=== PATIENT | male | born 1975 | race Caucasian/White ===

== ENCOUNTER 2017-09-05 07:41 | Day surgery (SDC) | payer MEDICAID, SELFPAY ==
[2017-09-05 08:02] VITALS: BP 149/88; PULSE 113; RESP 18; TEMP 37.1; O2SAT 98; BMI 44.2
[2017-09-05 08:28] VITALS: O2SAT 100
--- NOTE | 2017-09-05 08:37 | PC.NURSE ---
Ceferino Biggs in room at 0835 to take over sedating for MAC anesthesia. IV sedation attempted, pt is still talking and having conversation.
--- NOTE | 2017-09-05 09:00 | HMH.SCOPE ---
- Procedure: Date: 09/05/17 Procedure Performed:: Colonoscopy Indications:: This is a 41-year-old gentleman seen in consultation from Dr. Hansen for evaluation regarding bright red blood per rectum. The patient is concerned about bleeding hemorrhoids . Performing Provider:: Robin Horton MD Referring Provider:: Dr. Hansen Sedation:: IV sedation with 7 mg of Versed and 150 mcg of fentanyl followed by monitored anesthesia care Procedure:: After informed consent was obtained, the patient was taken to the endoscopy suite. IV sedation ensued but an appropriate level sedation cannot be safely achieved and the anesthesia service was consulted. Monitored anesthesia care then ensued. Digital rectal exam revealed some lateral hemorrhoidal cushions. Hemorrhoidal cushions were fairly mild and no sign of thrombosis or recent bleeding was noted. The colonoscope was then position. The entire colon was evaluated. Bowel preparation was moderate with irrigation and suctioning used to improve visualization. Moderate spasticity was encountered. A few scattered sigmoid diverticuli were seen. No polypoid or mass lesions were seen. Evaluation in the anorectal region revealed some fairly mild hemorrhoidal cushions. No large hemorrhoids, thrombosed hemorrhoids, or active bleeding was seen. The colonoscope was carefully removed and the patient was transferred to recovery. Findings:: Bowel preparation moderate Moderate spasticity Fairly mild hemorrhoidal cushions with no thrombosis or bleeding Scattered sigmoid diverticulosis Specimens:: None Recommendations:: Fiber, increase fluid intake, stool softeners, Preparation H, and Proctosol. Follow-up for reevaluation in 1-2 weeks. Complications:: No immediate Estimated blood obtained (mL): 0
[2017-09-05 09:05] VITALS: BP 102/65; PULSE 87; RESP 18; O2SAT 97
--- NOTE | 2017-09-05 09:07 | P.PN_ITS ---
[facility] Anesthesia Checklist - Patient Identification Patient Identification: Arm Band, Verbal (Name & ) - Structural Data Admitted From: Home Planned Operative Procedure/s: colonoscopy Consent for Planned Operative Procedure(s) Verified: Yes Verified Documents: Surgical Consent - NPO Status Verified Time NPO: 00:00 - Chart Verification Results Verified: None - Additional verifications Patient : No Anesthesia Reactions: No Hx Blood Transfusions: No Blood Transfusion Reaction: No Cephalosporin Allergy: No Previous Colonoscopy: No - Cardiovascular Assessment Heart Sounds: S1 & S2 Pulse Strength: Baseline Pulse Rhythm: Regular Peripheral Edema: No - Airway Assessment C-Spine Mobility Assessed: Yes TMJ Mobility Assessed: Yes Dentition: Poor Dentition - Neurological Assessment Level of Consciousness: Appropriate Hx Seizures: No Numbness or tingling in extremities: No - Anesthesia Plan Anesthesia Risk discussed: Yes ASA Class: II Anesthesia Type: MAC [facility] Anesthesia HX I have reviewed the patient's past medical history: Yes Medical History: Denies:: Diabetes Mellitus Type 1, Diabetes Mellitus Type 2, Internal Pacemaker, Lung Disease, Seizures Other Surgeries: Yes: No Previous Surgery. No: Pacemaker *Family Hx:: No significant family history
[2017-09-05 09:15] VITALS: BP 103/86; PULSE 75; RESP 18; O2SAT 98
[2017-09-05 09:25] VITALS: BP 108/66; PULSE 72; RESP 16; O2SAT 97
== END 2017-09-05 09:25 | disposition home or self-care (01) ==
LOC: OUTP 07:43
PROVIDERS: Family Provider Emergency Medicine; PCP Internal Medicine Adolescent Medicine; Visit Provider Surgery
PROC: 0DJD8ZZ Inspection of Lower Intestinal Tract, Via Natural or Artificial Opening Endoscopic (ICD-10-PCS; CPT 45378; principal; 2017-09-05 08:15)
DX: K62.5 Hemorrhage of anus and rectum (principal); K58.9 Irritable bowel syndrome, unspecified; K64.9 Unspecified hemorrhoids; K57.30 Diverticulosis of large intestine without perforation or abscess without bleeding
CPT/HCPCS: 45378; 99152; 99153

== ENCOUNTER 2020-06-05 17:13 | Emergency (ER) | payer MEDICAID, SELFPAY ==
[2020-06-05 17:30] VITALS: BP 134/107; PULSE 102; RESP 16; TEMP 36.9; O2SAT 99; BMI 20.9
--- NOTE | 2020-06-05 18:14 | HMH.EDUTC ---
[facility] [place] Impression: Exposure to COVID-19 virus Disposition: Home, Self-Care Condition on Discharge: Good Instructions: Preventing the Spread of Coronavirus Discharge Instructions Additional Instructions: isolate until test results are known neg Referrals: PCP,No [Primary Care Provider] - Time of Disposition: 18:22 Medical Decision Making - Asher Inquiry Pt receiving controlled substance: No Vital Signs: 06/05/20 17:30 06/05/20 18:18 Temperature 98.5 F 98.5 F Temperature Source Oral Pulse Rate 102 H Pulse Rate [Right Brachial] 102 H Respiratory Rate 16 16 Blood Pressure 134/107 H Blood Pressure [Right Arm] 134/107 H Blood Pressure Mean [Right Arm] 116 Blood Pressure Source [Right Arm] Automatic Cuff Blood Pressure Position [Right Arm] Sitting 02 Sat by Pulse Oximetry 99 Oxygen Delivery Method Room Air Orders (Tests/Meds): ORDERS Category Date Time Status Covid-19 Nasal PCR Sendout Jamin Routine Lab 06/05/20 17:38 [place] [facility] [place] - General Chief complaint: [facility] Stated complaint: covid exposure Time Seen by Provider: 06/05/20 18:20 Mode of Arrival: Ambulatory Source of Information: Patient Limitations: No Limitations Description of Symptoms (Recalled from Triage Doc. by RN): PATIENT REQUESTING COVID TEST D/T INDIRECT EXPOSURE; DENIES SYMPTOMS HEENT Symptoms (Recalled from RN notes): No Resp Symptoms (Recalled from RN notes): No Skin Symptoms (Recalled from RN notes): No MS Symptoms (Recalled from RN notes): No Functional Status (Recalled from RN notes): WNL - History of Present Illness Provider Complaint: 44 yr old male presnets for covid test. Has been exposed but denies symptoms. - Related Data Previous Rx's Medication Instructions Recorded peg 3350-electrolytes 227.1 240 ml PO Q10M #1 each 09/03/17 gram-21.5 gram-6.36gram oral powder packet Allergies Allergy/AdvReac Type Severity Reaction Status Date / Time No Known Allergies Allergy Verified 09/04/17 10:10 - Worker's Comp Is this a Worker's Comp case?: No [facility] History - Hepatitis A Screen Drug use history?: No High risk sexual behaviors?: No History of sexually transmitted infection?: No Currently employed?: No Childcare worker?: No Do you have indoor plumbing?: Yes Do you have electricity?: Yes Attestation statement:: This patient has been screened for Hepatitis A risk factors. I have reviewed the patient's past medical history: Yes Medical History: Denies:: Diabetes Mellitus Type 1, Diabetes Mellitus Type 2, Internal Pacemaker, Lung Disease, Seizures Other Medical History: Denies: Blood Transfusion Reaction Other Surgeries: Yes: No Previous Surgery. No: Pacemaker - Social History Smoking Status: Current every day smoker Tobacco Type: cigarettes Alcohol Intake: never Alcohol Intake Frequency:: 3 or more drinks per day Substance Use Type: denies use Occupational Status: other Family Hx:: No significant family history ROS Obtained: Yes Systems reviewed as appropriate & no additional complaints - Constitutional Constitutional: Reports system reviewed and no additional complaints, except as docu, Denies fever(s) - Eyes Eyes: Reports system reviewed and no additional complaints, except as docu - ENT Ears, Nose, Mouth, and Throat: Reports system reviewed and no additional complaints, except as docu, Denies bleeding gums - Cardiovascular Cardiovascular: Reports system reviewed and no additional complaints, except as docu, Denies chest pain - Respiratory Respiratory: Yes system reviewed and no additional complaints, except as docu - Gastrointestinal Gastrointestingal: Reports: system reviewed and no additional complaints, except as docu. Denies: nausea - Genitourinary Male Genitourinary: Reports system reviewed and no additional complaints, except as docu - Musculoskeletal Musculoskeletal: Reports system reviewed and no additional compl
[2020-06-05 18:18] VITALS: BP 134/107; PULSE 102; RESP 16; TEMP 36.9; O2SAT 99
[2020-06-07 12:55] LABS: Covid-19 Nasal PCR Sendout Lex Not Detected
== END 2020-06-05 18:25 | disposition home or self-care (01) ==
PROVIDERS: Emergency Provider Nurse Practitioner Family
DX: Z20.828 Contact with and (suspected) exposure to other viral communicable diseases (principal); F17.210 Nicotine dependence, cigarettes, uncomplicated
CPT/HCPCS: 99201; U0004

== ENCOUNTER 2020-06-20 12:17 | Emergency (ER) | payer MEDICAID, SELFPAY ==
[2020-06-20 12:19] VITALS: BP 123/78; PULSE 100; RESP 20; TEMP 36.4; O2SAT 100; BMI 20.2
[2020-06-20 12:20] VITALS: BP 123/78; PULSE 100; RESP 20; TEMP 36.4; O2SAT 100; BMI 20.2
--- NOTE | 2020-06-20 12:26 | XR_ITS ---
PROCEDURE: XR FOOT RT MIN 3V CLINICAL INDICATION: fall Pain COMPARISON: No exams were available for comparison FINDINGS: There is a nondisplaced distal fibular fracture. No foot fracture is identified. The joint spaces are well-preserved. No significant degenerative/arthritic changes. No erosive changes evident. Other findings:None. IMPRESSION: Nondisplaced distal fibular fracture Dictated by: Segun Perez MD 06/20/2020 12:59 Segun Perez MD in [place] 06/20/2020 12:59
--- NOTE | 2020-06-20 12:26 | XR_ITS ---
PROCEDURE: XR ANKLE RT MIN 3V CLINICAL INDICATION: fall Posttraumatic pain COMPARISON: No exams were available for comparison FINDINGS: There is a nondisplaced oblique fracture of the distal shaft of the fibula at the diaphyseal metaphyseal junction. The ankle mortise appears preserved. Soft tissue swelling is present laterally. IMPRESSION: Nondisplaced distal fibular fracture Dictated by: Segun Perez MD 06/20/2020 12:59 Segun Perez MD in [place] 06/20/2020 12:59
--- NOTE | 2020-06-20 12:38 | HMH.EDUTC ---
[facility] [place] Clinical Impression: Oblique fracture of shaft of fibula Qualifiers: Encounter type: initial encounter Fracture type: closed Fracture alignment: nondisplaced Laterality: right Qualified Code(s): S82.434A - Nondisplaced oblique fracture of shaft of right fibula, initial encounter for closed fracture Disposition: Home, Self-Care Condition on Discharge: Good Instructions: How to Use Crutches, How To Perform RICE (Rest, Ice, Compress, Elevate), How to Apply an Elizabeth Wrap, Ibuprofen Additional Instructions: *Non-weight bearing *RICE, Rest the extremity, Ice 15-20 minutes 3-4 times daily, Compress- wear the elizabeth wrap as discussed as much as possible to help reduce swelling and pain, Elevate the extremity when at rest *Elizabeth wrap/Walking boot is for support and help control swelling, use it except in the shower. Be sure that is not to tight but not to loose either *Elevate when resting *Ibuprofen as prescribed every 8 hours as needed for pain an inflammation. If need something more can take Tylenol in between doses of Ibuprofen to help Immediately follow up with your family doctor for new or worsening of symptoms, or no noticeable improvement over the next 3-5 days Prescriptions: Ibuprofen [Ibuprofen 800mg Tablet] 800 mg PO Q8HP PRN #20 tab PRN Reason: Moderate Pain Transmission Status: Received by [facility] Referrals: PCP,Sandy [Primary Care Provider] - Ann-Marie Malloy MD [Physician] - 06/27/20 10:00 am Time of Disposition: 13:02 Medical Decision Making - Asher Inquiry Pt receiving controlled substance: Sandy Sterling was queried for this patient: No Vital Signs: 06/20/20 12:19 06/20/20 12:20 06/20/20 13:08 Temperature 97.5 F L 97.5 F L 97.5 F L Temperature Source Oral Oral Pulse Rate 100 H Pulse Rate [Left Radial] 100 H 100 H Respiratory Rate 20 20 20 Blood Pressure 123/78 Blood Pressure [Right Arm] 123/78 123/78 Blood Pressure Mean [Right Arm] 93 93 Blood Pressure Source [Right Arm] Automatic Cuff Automatic Cuff Blood Pressure Position [Right Arm] Sitting Sitting 02 Sat by Pulse Oximetry 100 100 Oxygen Delivery Method Room Air Room Air - Radiology Data #1 Image(s): Foot/Toes Image Reviewed: Yes I reviewed the patient's radiology image Oblique fracture noted in fibula #2 Image(s): Ankle Image Reviewed: Yes I reviewed the patient's radiology image Oblique Fracture in distal fibula - Physician Consults Physician Consulted: Gama Time: 12:50 Reason -: Orthopedic Eval/Care Comment/Response: Spoke with Dr Malloy and she viewed xray and agreed with fracture of fibula, advised to place in elizabeth wrap, walking boot and crutches with RICe and appointment in her office next week, SaturdayJun 27 at 10am [facility] [place] - General Stated complaint: [id number] right foot injury @ home Time Seen by Provider: 06/20/20 12:38 Mode of Arrival: Ambulatory Source of Information: Patient Limitations: No Limitations Description of Symptoms (Recalled from Triage Doc. by RN): states he fell on a piece of firewood last night and he thinks he broke his right ankle/foot HEENT Symptoms (Recalled from RN notes): No Resp Symptoms (Recalled from RN notes): No Skin Symptoms (Recalled from RN notes): No MS Symptoms (Recalled from RN notes): Yes Functional Status (Recalled from RN notes): WNL - History of Present Illness Provider Complaint: Patient states that last night he stepped on a piece of wood and it rolled with him and twisted his foot/ankle State that ever since he has been having swelling and pain in his right ankle area and hurts when he tried to walk on it States that today he was having some swelling and bruising so he come in to get it checked Denies any other injury - Related Data Previous Rx's Medication Instructions Recorded Ibuprofen [Ibuprofen 800mg 800 mg PO Q8HP PRN #20 tab 06/20/20 Tablet] Allergies Allergy/AdvReac Type Severity Reaction Status Da
[2020-06-20 13:08] VITALS: BP 123/78; PULSE 100; RESP 20; TEMP 36.4; O2SAT 100
== END 2020-06-20 13:10 | disposition home or self-care (01) ==
PROVIDERS: Emergency Provider Nurse Practitioner
DX: S82.434A Nondisplaced oblique fracture of shaft of right fibula, initial encounter for closed fracture (principal); W01.198A Fall on same level from slipping, tripping and stumbling with subsequent striking against other object, initial encounter; Y92.019 Unspecified place in single-family (private) house as the place of occurrence of the external cause; F17.210 Nicotine dependence, cigarettes, uncomplicated
CPT/HCPCS: 29515; 73610; 73630; 99201

== ENCOUNTER → 2020-06-27 10:10 | Outpatient (CLI) | payer MEDICAID, SELFPAY ==
--- NOTE | 2020-06-27 10:16 | XR_ITS ---
PROCEDURE: XR ANKLE WT BEARING RT MIN 3V CLINICAL INDICATION: RT ankle COMPARISON: CR XR ANKLE RT MIN 3V from 06/20/2020 FINDINGS: The spiral oblique fracture distal fibula is again noted. There is less soft tissue swelling laterally is seen on previous study 06/20/2000. The ankle mortise appears normal. There is no definite visible callus formation. IMPRESSION: Stable essentially nondisplaced spiral oblique fracture distal fibula Dictated by: Dr. Darren Michelle MD 06/27/2020 12:46 Dr. Darren Michelle MD in [place] 06/27/2020 12:46
== END ==
PROVIDERS: Visit Provider Orthopaedic Surgery
DX: M25.571 Pain in right ankle and joints of right foot (principal)
CPT/HCPCS: 73610

== ENCOUNTER → 2020-07-11 13:12 | Outpatient (CLI) | payer MEDICAID, SELFPAY ==
--- NOTE | 2020-07-11 13:17 | XR_ITS ---
PROCEDURE: XR ANKLE RT MIN 3V CLINICAL INDICATION: non-displaced fracture of R distal fibula Follow-up fracture COMPARISON: CR XR ANKLE RT MIN 3V from 06/20/2020 CR XR ANKLE WT BEARING RT MIN 3V from 06/27/2020 FINDINGS: Cast has been placed stabilizing the nondisplaced distal fibular fracture which is in good alignment. IMPRESSION: Good alignment distal fibular fracture status post cast placement Dictated by: Segun Perez MD 07/11/2020 13:44 Segun Perez MD in [place] 07/11/2020 13:44
== END ==
PROVIDERS: PCP Nurse Practitioner Family; Visit Provider Orthopaedic Surgery
DX: S82.431A Displaced oblique fracture of shaft of right fibula, initial encounter for closed fracture (principal)
CPT/HCPCS: 73610

== ENCOUNTER 2020-07-11 14:31 | Outpatient (RCR) | payer MEDICAID, SELFPAY | END 2020-07-11 15:31 | disposition home or self-care (01) | LOC: PT 14:31 | PROVIDERS: Visit Provider Orthopaedic Surgery | DX: S82.4 Fracture of shaft of fibula (principal) | CPT/HCPCS: 97760 ==

== ENCOUNTER → 2020-08-29 12:09 | Outpatient (CLI) | payer MEDICAID, SELFPAY ==
--- NOTE | 2020-08-29 12:13 | XR_ITS ---
PROCEDURE: XR ANKLE WT BEARING RT MIN 3V CLINICAL INDICATION: RT distal fibula FX Follow-up fracture COMPARISON: CR XR ANKLE RT MIN 3V from 06/20/2020 CR XR ANKLE WT BEARING RT MIN 3V from 06/27/2020 DX XR ANKLE RT MIN 3V from 07/11/2020 FINDINGS: The cast has been removed. Healing distal fibular fracture is noted with callus formation laterally and posteriorly. Fracture line is still visible on the lateral view. There is good alignment IMPRESSION: Healing nondisplaced distal fibular fracture with good alignment Dictated by: Segun Perez MD 08/29/2020 13:00 Segun Perez MD in [place] 08/29/2020 13:00
== END ==
PROVIDERS: PCP Nurse Practitioner Family; Visit Provider Orthopaedic Surgery
DX: S82.434A Nondisplaced oblique fracture of shaft of right fibula, initial encounter for closed fracture (principal)
CPT/HCPCS: 73610

== ENCOUNTER 2020-08-29 14:52 | Outpatient (RCR) | payer MEDICAID, SELFPAY | END 2020-08-29 15:29 | disposition home or self-care (01) | LOC: PT 14:52 | PROVIDERS: Visit Provider Orthopaedic Surgery | DX: S82.434A Nondisplaced oblique fracture of shaft of right fibula, initial encounter for closed fracture (principal) ==

== ENCOUNTER → 2020-12-23 08:06 | Outpatient (CLI) | payer MEDICAID, SELFPAY ==
--- NOTE | 2020-12-23 08:10 | US_ITS ---
PROCEDURE: US ABDOMEN COMPLETE CLINICAL INDICATION: UNSPECIFIED ABD PAIN Hello COMPARISON: No exams were available for comparison FINDINGS: PANCREAS: Unremarkable. No obvious mass or abnormal fluid collection. No ductal dilatation LIVER: Diffuse increased echogenicity of the liver with poor through transmission of sound consistent with hepatic steatosis. No focal liver lesion demonstrated. There is appropriate direction of blood flow within non dilated portal vein. RIGHT KIDNEY: Unremarkable. Normal size and echogenicity. No hydronephrosis LEFT KIDNEY: Unremarkable. Normal size and echogenicity. No hydronephrosis GALLBLADDER: No gallstones, gallbladder wall thickening, pericholecystic fluid, or biliary dilatation. AORTA: No evidence of aneurysmal dilatation. SPLEEN: Unremarkable. Normal size and echogenicity ASCITES: None demonstrated. Ultrasound performed of the left lower quadrant in the patient's area of reported bulge. No obvious hernias were identified at this region. If there is high degree suspicion of hernia then CT may provide further evaluation. IMPRESSION: No acute findings Dictated by: Segun Perez MD 12/23/2020 15:02 Segun Perez MD in [place] 12/23/2020 15:02
== END ==
PROVIDERS: PCP Nurse Practitioner Family; Visit Provider Nurse Practitioner
DX: R10.9 Unspecified abdominal pain (principal)
CPT/HCPCS: 76700

== ENCOUNTER 2023-01-15 07:00 | Outpatient (RCR) | payer OTHER, SELFPAY | END 2023-03-05 16:06 | disposition home or self-care (01) | LOC: PT 07:00 | PROVIDERS: Visit Provider Nurse Practitioner Family | DX: M54.50 Low back pain, unspecified (principal) | CPT/HCPCS: 97110; 97140; 97163 ==

== ENCOUNTER 2024-07-08 10:35 | Outpatient (POV) | payer OTHER, SELFPAY ==
--- NOTE | 2024-07-08 10:36 | A.OFFVIS_ITS ---
HPI Data of Consult Patient: new to practice Consult date: 07/08/24 Requesting Physician: Jennifer Jones APRN Consult Narrative Reason for consult: Low back pain, bilateral leg pain History of present illness: Mr. Domingo is a 48 year old male who presents today as a new patient. He is a referral from Desiree Warren's office. Today he rates his pain a 10 out of 10. Patient states he has longstanding pain throughout his low back that does radiate down into his bilateral lower extremities that has been going on for at least 15 to 20 years. He states he has tried oral medications, heat and ice and topicals along with multiple injections that only did very temporary relief providing 1 to 2 days of improvement. Patient states that he is not interested in additional injection therapy and that he has resorted to buying drugs off the street to help with his overall pain. Patient denies any heart or kidney issues. He states that Desiree's office is currently doing Celebrex, Flexeril and lidocaine. Patient is asking if we can do anything stronger such as gabapentin. Patient states his pain is constant. His Asher has been reviewed. CC: Jennifer Jones APRN [facility] Disclaimer: The information contained in this section may have been updated after the patient was seen, as this information can be updated by other users. Medical History (Updated 07/08/24 @ 10:44 by Jennifer Jones APRN) No significant past medical history Family History (Updated 07/08/24 @ 10:42 by Hailee Live RN) Other Unknown family medical history Social History Smoking Status: Current every day smoker tobacco type: cigarettes alcohol intake: current alcohol intake frequency: a few times a month counseling provided: provider counseling substance use type: former substance user and marijuana current occupational status: other Travel in the last 8 weeks: None caffeine: No Review of Systems Review of Systems Review of systems:: pertinent systems reviewed and negative unless documented below Review of systems (narrative): Review of Systems: General: No recent weight changes, no fever, no sleep disturbances Respiratory: No cough, no shortness of air, no recurring pulmonary infections Cardiovascular/peripheral vascular: No chest pain, no palpitations, no edema, no shortness of breath Gastrointestinal: No new onset incontinence, normal bowel movements reported Genitourinary: No new onset incontinence Musculoskeletal: Low back pain, leg pain Psychiatric: [Normal mood/affect] Neurological: [Denies weakness in extremities], [denies balance issues] Meds Home Medications and Allergies Home Medications ?Medication ?Instructions ?Recorded ?Confirmed ?Type acetaminophen 300 mg-codeine 30 mg 1 tab PO Q8H PRN pain #30 tabs 06/27/20 08/29/20 Rx tablet ibuprofen 800 mg tablet 800 mg PO TID PRN pain #30 tabs 07/19/20 08/29/20 Rx New Prescriptions to Start Prescriptions: Allergies Allergy/AdvReac Type Severity Reaction Status Date / Time No Known Allergies Allergy Verified 08/29/20 14:15 Objective Narrative: Physical Exam: General: Alert and oriented x3, no acute distress, pleasant and cooperative Lungs: Respirations even and unlabored, symmetrical chest expansion Eyes: PERRL Musculoskeletal: Flexion and extension of lumbar [spine] somewhat guarded secondary to pain Neurological: Speech clear, no gross sensory deficit Additional findings Additional findings: [facility] 03/12/2023 MRI lumbar spine without contrast Findings: Multiplanar MR imaging of the lumbar spine was performed without contrast. On the sagittal T2 weighted images disc degeneration is seen at L4-L5 and L5-S1. There is mild retrolisthesis of L5 on S1. No evidence of fracture. Conus has an unremarkable appearance. L2-3: Annular bulge present. L3-L4 annular bulge present. L4-L5: There is an annular bulge present with facet arthropathy. There is left posterior lateral disc protrusion with left lateral recess stenosis. There is mild right and moderate left neuroforaminal narrowing. There is mild central canal stenosis with an AP thecal sac diameter of 7 mm. L5-S1: Partial lumbarization of S1. Annular bulge with facet arthropathy. Right posterolateral disc protrusion that contributes to severe right neuroforaminal narrowing. Mild left neuroforaminal narrowing Assessment and Plan *Assessment and plan (1) Degenerative disc disease, lumbar: Status: Acute Category: Medical Code(s): M51.369 - Other intervertebral disc degeneration, lumbar region without mention of lumbar back pain or lower extremity pain (2) Lumbar radiculopathy: Status: Acute Category: Medical Code(s): M54.16 - Radiculopathy, lumbar region Plan Patient does have chronic pain throughout his low back and legs. I did discuss with the patient that we are a injection therapy clinic and that we would be offering additional injections or other conservative measures. Patient was counseled that we do not write any scheduled medications for new patients unless there are certain factors such as cancer and that this is [id number]. Patient was counseled that we could do conservative treatment such as other NSAIDs such as meloxicam or diclofenac however he states he has already tried those all and none of them seem to help. Patient was also reviewed over different muscle relaxers however he did not think this would improve his symptoms. I did offer to order a compounded cream and he would like to proceed forward with this plan of care. Patient was counseled that if he decides to try other treatment measures such as the injections that he can call for his next follow-up. Patient acknowledges understanding agrees with plan of care. Due to the patient's history of illegal drug use that he did disclose during today's visit regarding buying illicit drugs off the street, we would not be offering any scheduled medications now nor in the future. Patient has been instructed to contact the clinic with any concerns before the next appointment. Dr. Manzo has reviewed this note and agrees with this plan of care. This note was dictated using voice recognition software and make contain errors or omissions. All injections are used with Lidocaine, Bupivacaine and Depo Medrol. Occasionally urine drug screen is needed to verify patient's compliance with our office pain contract. This is ordered based off specific treatments related to chronic pain with the potential to abuse certain medications.
[2024-07-08 10:39] VITALS: BP 134/90; PULSE 110; RESP 18; O2SAT 96
== END 2024-07-08 23:59 | disposition home or self-care (01) ==
LOC: SC.PAIN 10:35
PROVIDERS: Visit Provider Nurse Practitioner Family
DX: M51.16 Intervertebral disc disorders with radiculopathy, lumbar region (principal); F17.210 Nicotine dependence, cigarettes, uncomplicated
CPT/HCPCS: 99202; G0463